=== PATIENT | female | born 1950 | race Caucasian/White ===

== ENCOUNTER → 2023-12-14 15:10 | Outpatient (REF) | payer MEDICARE, BC, SELFPAY | LOC: HWRAD 15:10 | PROVIDERS: ATTENDING PHYSICIAN Internal Medicine Critical Care Medicine; FAMILY PHYSICIAN Family Medicine | DX: Z87.891 Personal history of nicotine dependence (principal) | CPT/HCPCS: 71271 ==

== ENCOUNTER 2025-01-27 03:44 | Emergency (ER) | payer MEDICARE, BC, SELFPAY ==
[2025-01-27 03:50] VITALS: BP 130/81
--- NOTE | 2025-01-27 05:15 | ED.GENMED ---
History of Present Illness
General
Chief Complaint: Back Pain
Source: patient
Exam Limitations: none
Time Seen by Provider: 01/27/25 05:10
History of Present Illness
History of Present Illness:
74-year-old female with past medical history of myasthenia gravis, degenerative disc disease, hyperlipidemia, GERD, IBS, OCD presents months from today with concerns of low back pain waking her up from sleep at around 2 AM this morning. Patient
reports that she has been dealing with low back pain for the past few weeks but reports it got acutely worse tonight. She denies any trauma to the area. Denies any falls. She denies any lower extremity paresthesias. She denies any recent spinal
injections. When she woke up this morning, patient reports the pain was so bad that anytime she moved she got severe pain and could not get out of bed. She usually is able to ambulate without difficulty with a walker. She denies any urinary or
fecal incontinence, denies any any fevers or chills. She took Tylenol without relief and been using heating pad at home. She has any abdominal pain, nausea or vomiting. Patient received a dose of fentanyl en route to emergency department and
appears comfortable at this time, she rates her pain a 5 out of 10.
Past History
Past History
ED Past Medical History: Other (Myasthenia gravis) and Other (myasthenia gravis, PE, [email or web address])
ED Past Surgical History: Other (thymis surgery)
Social History
Living: with family
Review of Systems
Review of Systems
All Other Systems: ROS reviewed and negative except as documented in HPI and ROS
Phy Exam
Physical Exam
Physical Exam:
General: Patient is well appearing and in no acute distress; non-toxic
Skin: Warm and dry, no rashes or lesions
Head: Normocephalic, atraumatic
Eyes: Sclera non-icteric. EOMs intact.
Cardiac: Regular rate
Peripheral Vascular: No lower extremity edema, 2+ results pedis pulses bilaterally
Pulm: Normal respiratory effort
Abdomen: No abdominal tenderness to palpation
Musculoskeletal: Midline lumbar spinal tenderness to palpation, no paraspinal tenderness, no exacerbation of pain with ranging of bilateral lower extremities
Neuro: CN II-XII intact, no focal neurologic deficits.
Psychiatric: Appropriate mood and affect.
Course
Orders/Labs/Results
Orders:
Orders
01/27/25 05:25
CR Lumbar Spine 2 Or 3 Views Urgent
Comment:
Reason For Exam: midline low back pain
01/27/25 05:30
Oxycodone/Acetaminophen [Percocet 5/325] 1 tablet PO NOW STA
01/27/25 06:11
Lidocaine [Lidocaine 4% Patch] 1 patch TOPICAL DAILY ONE
Apply Lidocaine patch(s) to:: low back
Vital Signs
Initial and Last Documented VS:
Initial Vital Signs
Temp Pulse Resp BP Pulse Ox
97.5 F 73 20 130/81 100
01/27/25 03:50 01/27/25 03:50 01/27/25 03:50 01/27/25 03:50 01/27/25 03:50
Last Documented Vital Signs
Temp Pulse Resp BP Pulse Ox
97.5 F 90 20 108/72 96
01/27/25 03:50 01/27/25 05:38 01/27/25 05:38 01/27/25 05:38 01/27/25 05:38
MDM/Problems Addressed
Differential Diagnosis Includes:
Vertebral compression fracture, herniated disc, degenerative disc disease, paralumbar strain
MDM/Problems Addressed:
74-year-old female presents emergency department acute worsening of her chronic low back pain. She was given fentanyl and route to the emergency department. She denies any fevers or chills, urinary or fecal incontinence, genital paresthesias,
lower extremity paresthesias or weakness. On physical exam she has midline spinal tenderness. X-ray concerning for possible T12 compression fracture. Pain management discussed. Patient states that she has been doing PT at home. Patient
demonstrated her ability ambulate in emergency department demonstrate a stable gait. Patient feels safe going home. Patient stable for discharge.
Chronic conditions affecting care:
IBS, GERD,
*Pulse Oximetry
Patient hypoxic: no
*Critical Care Note
Total Time (30-74mins, 75-104mins- exclusive of procedures): Not Applicable
Data Reviewed
Review of Other/Old Records Reveals: Records (Reviewed discharge summary from 08/13/2021 seen for uncomfortable state with lupus and feels improvement. Vena cava filter, reviewed physician office history and physical from March 1520-second patient
seen for weight this)
Source: patient and records
ED Attending Note
-
Portions of this chart may have been created with voice recognition software.� Occasional wrong word or��sound alike� substitutions may have occurred due to the inherent limitations of voice recognition software.
Discharge Plan
Departure
Patient Disposition: Home (Routine Discharge)
Date of Disposition: 01/27/25
Time of Disposition: 07:00
Patient with high blood pressure during this ER visit?: Yes
Condition: Good
Discharge Problem:
Back pain, Compression fracture
Instructions: Vertebral compression fracture, Low Back Pain (DC), BLOOD PRESSURE
Prescriptions:
New
lidocaine 5 % adhesive patch,medicated
1 patch topical DAILY Qty: 15 0RF
No Action
atorvastatin 10 MG tablet
10 mg PO DAILY
cyclosporine [Restasis] 10 DROPS dropperette
1 drp BOTH EYES TID
Prolia 60 MG/ML syringe
60 mg SQ [id number]
paroxetine HCl 10 MG tablet
10 mg PO DAILY 0RF
Rituxan:
1 dose IV [id number] Qty: 0 0RF
Patient Comments:
GETS 6 HOUR IV INFUSION EVERY 3 MONTHS, UNSURE OF DOSAGE.
Rx Instructions:
resume in 6 weeks or later
hydroxychloroquine 200 MG tablet
200 mg PO BID
pramipexole [Mirapex] 0.5 MG tablet
0.5 mg PO BID
methotrexate sodium 2.5 MG tablet
10 mg PO WE
diazepam 2 MG tablet
2 mg PO HSPRN PRN (Reason: sleep)
Patient Comments:
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
loperamide 2 MG capsule
2 mg PO Q4HPRN PRN (Reason: diarrhea)
Eliquis 5 MG tablet
5 mg PO BID Qty: 0 0RF
celecoxib 200 MG capsule
200 mg PO DAILY
zolpidem 5 MG tablet
5 mg PO HSPRN PRN (Reason: sleep)
Mirapex
0.5 mg PO BID
tramadol
50 mg PO Q6H
Referrals:
Mounika Reich DO [Family Provider] -
Activity Restrictions/Additional Instructions:
Your x-ray reveals a possible compression fracture at T12 of unknown age.
PLEASE RETURN TO THE ER SHOULD YOU DEVELOP URINARY FECAL INCONTINENCE, GENITAL NUMBNESS AND TINGLING, BILATERAL LOWER EXTREMITY NUMBNESS AND TINGLING, INABILITY TO AMBULATE, CHEST PAIN, SHORTNESS OF BREATH, DIZZINESS, LIGHTHEADEDNESS, FEVERS OR
CHILLS, OR ANY OTHER SIGNS OR SYMPTOMS WORRISOME
Interventions
Interventions:
*Risk Screen - Suicide Last Done: 01/27/25 03:50
*General Assessment Last Done: 01/27/25 03:50
*Neglect/Abuse Screening Last Done: 01/27/25 03:50
*ED- Fall Risk Assessment Last Done: 01/27/25 03:50
*ED COVID-19 Vaccine History Last Done: 01/27/25 03:50
ED-Musculoskeletal Assessment Last Done: 01/27/25 04:25
Discharge Date and Time
Print Language: [id number]
[2025-01-27 05:38] VITALS: BP 108/72
[2025-01-27] MEDS: PERCOCET 5/325 1 TABLET PO (05:38)
[2025-01-27] MEDS: LIDOCAINE 4% PATCH 1 PATCH TOPICAL (06:28)
== END 2025-01-27 07:43 | disposition home or self-care (01) ==
LOC: EMR 03:44
PROVIDERS: EMERGENCY PHYSICIAN Emergency Medicine; FAMILY PHYSICIAN Family Medicine
DX: M54.9 Dorsalgia, unspecified (principal); M48.54XA Collapsed vertebra, not elsewhere classified, thoracic region, initial encounter for fracture; G70.00 Myasthenia gravis without (acute) exacerbation; E78.00 Pure hypercholesterolemia, unspecified; K21.9 Gastro-esophageal reflux disease without esophagitis; K58.9 Irritable bowel syndrome, unspecified; F42.9 Obsessive-compulsive disorder, unspecified
CPT/HCPCS: 99283; 72100

== ENCOUNTER → 2025-02-14 12:03 | Outpatient (REF) | payer MEDICARE, BC, SELFPAY ==
[2025-02-14 12:51] LABS: % Basophils 1.2 % (0-2); % Eosinophils 3.9 % (0-6); % Immature Granulocytes 0.8 % (0-0.5); % Lymphocytes 10.2 % (20.5-51.1); % Monocytes 13.4 % (1.7-9.3); % Neutrophils 70.5 % (42.2-75.2); Absolute Basophils 0.1 10^3/uL (0-0.2); Absolute Eosinophils 0.2 10^3/uL (0-0.7); Absolute Lymphocytes 0.5 10^3/uL (1.2-3.4); Absolute Monocytes 0.7 10^3/uL (0.1-0.6); Absolute Neutrophils 3.6 10^3/uL (1.4-6.5); Hematocrit 36.1 % (37.0-47.0); Hemoglobin 11.9 g/dL (12.0-16.0); Mean Platelet Volume 9.8 fL (7.4-10.4); Nucleated Red Blood Cells % 0 %; Platelet Count 288 10^3/uL (130-400); Red Blood Cell Count 3.72 10^6/uL (4.20-5.40); Red Cell Dist. Width 14.4 % (11.5-14.5); White Blood Cell Count 5.1 10^3/uL (4.8-10.8)
[2025-02-14 14:16] LABS: Ferritin 77.6 ng/ml (11.1-264.0)
[2025-02-14 14:47] LABS: Folate 11.6 ng/ml (2.76-20); Vitamin B12 771 pg/ml (239-931)
[2025-02-14 15:34] LABS: ALT (SGPT) 13 U/L (0-35); AST (SGOT) 24 U/L (14-36); Albumin 3.7 g/dl (3.5-5.0); Alkaline Phosphatase 119 U/L (38-126); Blood Urea Nitrogen 15 mg/dl (7-17); Calcium 9.7 mg/dl (8.4-10.2); Carbon Dioxide 27 mmol/L (22-30); Chloride 104 mmol/L (98-107); Glucose 95 mg/dl (70-99); Iron 76 ug/dl (37-170); Potassium 4.6 mmol/L (3.5-5.1); Sodium 139 mmol/L (135-145); Total Bilirubin 0.7 mg/dl (0.2-1.3); Total Protein 6.4 g/dl (6.3-8.2); eGFR > 60.00
[2025-02-14 15:43] LABS: Percent Saturation 24 % (20-50); Total Iron Binding Capacity 307 ug/dl (265-497)
== END ==
LOC: REG 12:03
PROVIDERS: ATTENDING PHYSICIAN Physician Assistant; FAMILY PHYSICIAN Family Medicine; REFERRING PHYSICIAN Internal Medicine Rheumatology
DX: R10.31 Right lower quadrant pain (principal); D64.9 Anemia, unspecified; D53.9 Nutritional anemia, unspecified
CPT/HCPCS: 36415; 80053; 82607; 82728; 82746; 83540; 83550; 85025

== ENCOUNTER → 2025-02-17 12:07 | Outpatient (REF) | payer MEDICARE, BC, SELFPAY | LOC: RAD 12:07 | PROVIDERS: ATTENDING PHYSICIAN Physician Assistant; FAMILY PHYSICIAN Family Medicine | DX: R10.31 Right lower quadrant pain (principal) | CPT/HCPCS: 74177; Q9967 ==

== ENCOUNTER → 2025-06-10 10:07 | Outpatient (REF) | payer MEDICARE, BC, SELFPAY | LOC: HWRCS 10:07 | PROVIDERS: ATTENDING PHYSICIAN Internal Medicine Cardiovascular Disease; FAMILY PHYSICIAN Family Medicine | DX: R06.09 Other forms of dyspnea (principal) | CPT/HCPCS: 93306 ==

== ENCOUNTER → 2025-06-12 08:16 | Outpatient (REF) | payer MEDICARE, BC, SELFPAY | LOC: HWRCS 08:16 | PROVIDERS: ATTENDING PHYSICIAN Internal Medicine Cardiovascular Disease; FAMILY PHYSICIAN Family Medicine | DX: I25.10 Atherosclerotic heart disease of native coronary artery without angina pectoris (principal) | CPT/HCPCS: 78452; 93017; A9500; J2785 ==

== ENCOUNTER → 2025-07-04 13:34 | Outpatient (REF) | payer MEDICARE, BC, SELFPAY | LOC: RCS 13:34 | PROVIDERS: ATTENDING PHYSICIAN Internal Medicine Cardiovascular Disease; FAMILY PHYSICIAN Family Medicine | DX: R06.02 Shortness of breath (principal); R00.2 Palpitations | CPT/HCPCS: 93307 ==

== ENCOUNTER → 2025-07-21 13:53 | Outpatient (REF) | payer MEDICARE, BC, SELFPAY | LOC: HWRAD 13:53 | PROVIDERS: ATTENDING PHYSICIAN Internal Medicine Critical Care Medicine; FAMILY PHYSICIAN Family Medicine | DX: Z87.891 Personal history of nicotine dependence (principal) | CPT/HCPCS: 71271 ==